=== PATIENT | female | born 1995 | race Caucasian/White ===

== ENCOUNTER 2023-04-01 08:47 | Emergency (ER) | payer OTHER ==
[2023-04-01 10:14] LABS: APPEARANCE,URINE CLEAR (CLEAR); BILIRUBIN,URINE NEGATIVE (NEGATIVE); COLOR,URINE YELLOW; GLUCOSE,URINE NEGATIVE (NEGATIVE); KETONES,URINE NEGATIVE (NEGATIVE); LEUKOCYTE ESTERASE,URINE TRACE (NEGATIVE); NITRITE,URINE NEGATIVE (NEGATIVE); OCCULT BLOOD,URINE MODERATE (NEGATIVE); PROTEIN,URINE NEGATIVE (NEGATIVE); UROBILINOGEN,URINE 0.2 E.U./dL (0.2-1.0)
[2023-04-01 10:21] LABS: BACTERIA,URINE FEW /HPF; RBC,URINE 0-5 /HPF; SQUAMOUS EPITHELIAL CELLS,UR FEW /HPF
[2023-04-01 10:28] LABS: HEMATOCRIT 38.6 % (37.0-47.0); HEMOGLOBIN 13.4 g/dL (11.5-16.5); MEAN CORPUSCULAR HEMOGLOBIN 30.2 pg (27.0-32.0); MEAN CORPUSCULAR HGB CONC 34.7 g/dL (31.0-35.0); MEAN PLATELET VOLUME 9.7 fL (6.0-10.0); RED BLOOD CELL COUNT 4.43 M/uL (3.80-5.80); RED CELL DISTRIBUTION WIDTH 12.4 % (11.0-16.0)
[2023-04-01] MEDS ORDERED: Amoxicillin 500 MG Cap ONE (10:45)
== END 2023-04-01 10:51 | disposition home or self-care (01) ==
LOC: LB.ED 08:47
DX: O23.41 Unspecified infection of urinary tract in pregnancy, first trimester (principal); Z3A.00 Weeks of gestation of pregnancy not specified; Z79.899 Other long term (current) drug therapy
CPT/HCPCS: 36415; 81001; 84702; 85027; 87086; 99283; A9270